=== PATIENT | female | born 1945 | race Caucasian/White ===

== ENCOUNTER 2021-11-08 16:05 | Emergency (ER) | payer MEDICARE ==
[~2021-11-08] VITALS: Ht 160 cm; Wt 79.0 kg
[~2021-11-08 16:05] MED LIST: AMLODIPINE5 MG PO; ASPIRIN EC81 MG PO; AZITHROMYCIN500 MG PO; BAYER ASPIRIN325 MG PO; COZAAR25 MG PO; DOCUSATE CAL240 MG PO; FLEXERIL PO; FLONASE NASAL50 MCG; METRONIDAZOL500 MG PO; MULTI VIT PO; ULTRAM50 M1 PO; ZOCOR20 M1 PO
[2021-11-08 21:34] VITALS: BP 179/93
== END 2021-11-08 21:43 | disposition home or self-care (01) ==
LOC: ED 16:05
DX: U07.1 COVID-19 (principal); E78.5 Hyperlipidemia, unspecified; Z86.73 Personal history of transient ischemic attack (TIA), and cerebral infarction without residual deficits